=== PATIENT | female | born 1985 | race Caucasian/White ===

== ENCOUNTER → 2017-09-17 11:14 | Outpatient (CLI) | payer SELFPAY ==
[2017-09-17 14:52] LABS: Chlamydia Trachomatis by PCR Negative (Negative); Neisserai gonorrhoeae by PCR Negative (Negative); Probe Check PASS; Sample Adequacy Control PASS; Specimen Processing Control PASS
== END ==
LOC: WOBLAB 11:15 → LABSPEC 11:16
PROVIDERS: Visit Provider Obstetrics & Gynecology
DX: Z11.3 Encounter for screening for infections with a predominantly sexual mode of transmission (principal)
CPT/HCPCS: 87491; 87591

== ENCOUNTER → 2017-10-20 10:29 | Outpatient (CLI) | payer SELFPAY ==
[2017-10-20 11:32] LABS: Absolute Lymphocyte Count 1.23 X10^3/ul (0.83-4.51); Absolute Neutrophil Count 3.9 X10^3/uL (2.0-7.7); Basophil# 0.01 X10^3/uL; Basophil% 0.2 % (0-1); Color, Urine Yellow (Yellow); Eosinophil# 0.04 X10^3/uL; Eosinophils% 0.7 % (0-5); Glucose, Dipstick Normal (Normal); Hematocrit 34.3 % (37-47); Hemoglobin 11.9 g/dl (12.0-15.0); Ketone-Dipstick Negative (Negative); Leukocyte Esterase-Dipstick 25 /ul (Negative); Lymphocyte # 1.23 X10^3/ul (4.0); Lymphocyte % 22.4 % (19-41); Mean Corp Hgb Conc 34.7 g/gl (32-36); Mean Corpuscular Hgb 31.8 pg (27.0-32.0); Mean Corpuscular Volume 91.7 fL (81-99); Mean Platelet Vol. 10.7 fl (6.2-12.0); Monocyte# 0.27 X10^3/uL; Monocyte% 4.9 % (0-10); Neutrophil # 3.93 X10^3/uL (2.7-7.7); Neutrophil % 71.6 % (47-70); Nitrite-Dipstick Negative (Negative); Occult Blood-Urine 150 /ul (Negative); POSITIVE COUNT NO; POSITIVE DIFFERENTIAL NO; POSITIVE MORPHOLOGY NO; Platelet Count 187 K/mm3 (150-450); Protein-Dipstick Negative (Negative); RBC Distribution Width CV 12.8 % (11.6-14.6); RBC Distribution Width SD 41.9 fl (35.1-43.9); Red Blood Count 3.74 M/mm3 (4.2-5.4); Specific Gravity, Urine 1.015 (1.002-1.030); Urine Bilirubin Dipstick Negative (Negative); Urine Clarity Cloudy (Clear); Urine Urobilinogen Normal (Normal); White Blood Count 5.5 K/mm3 (4.4-11.0)
[2017-10-20 11:53] LABS: Thyroid Stim Hormone (TSH) 1.05 uIU/mL (0.358-3.74)
[2017-10-20 12:31] LABS: HIV - WCH Non-Reactive (Nonreactive); Rubella IgG 35.3 IU/mL
[2017-10-21 14:48] LABS: HEPATITIS B SURFACE AG Negative (Negative); Hep C Antibodies <0.1 s/co ratio (0.0-0.9)
[2017-10-22 01:20] LABS: Prenatal RPR NONREACTIVE (NONREACTIVE)
== END ==
PROVIDERS: Family Provider Nurse Practitioner; PCP Nurse Practitioner; Visit Provider Obstetrics & Gynecology
DX: Z34.81 Encounter for supervision of other normal pregnancy, first trimester (principal)
CPT/HCPCS: 81002; 84443; 85025; 86703; 86762; 86803; 87340

== ENCOUNTER → 2018-01-24 10:18 | Outpatient (CLI) | payer SELFPAY ==
[2018-01-24 11:56] LABS: Hematocrit 33.7 % (37-47); Hemoglobin 11.3 g/dl (12.0-15.0); Mean Corp Hgb Conc 33.5 g/gl (32-36); Mean Corpuscular Hgb 32.1 pg (27.0-32.0); Mean Corpuscular Volume 95.7 fL (81-99); Mean Platelet Vol. 9.9 fl (6.2-12.0); Platelet Count 192 K/mm3 (150-450); RBC Distribution Width CV 12.8 % (11.6-14.6); RBC Distribution Width SD 44.4 fl (35.1-43.9); Red Blood Count 3.52 M/mm3 (4.2-5.4); Scan Indicated on CBC? Y/N YES- FLAGS NOTED; White Blood Count 7.4 K/mm3 (4.4-11.0)
[2018-01-24 11:58] LABS: Glucose Challenge Gest 1H 50g 64 mg/dL (70-140)
== END ==
PROVIDERS: Visit Provider Obstetrics & Gynecology
DX: Z34.83 Encounter for supervision of other normal pregnancy, third trimester (principal)
CPT/HCPCS: 36415; 82950; 85027

== ENCOUNTER → 2018-03-14 11:49 | Outpatient (CLI) | payer SELFPAY ==
[2018-03-14 14:44] LABS: Group B Strep DNA By PCR Negative (Negative); Internal Control PASS; Probe Check PASS; Specimen Processing Control PASS
== END ==
PROVIDERS: Visit Provider Obstetrics & Gynecology
DX: Z36.85 Encounter for antenatal screening for Streptococcus B (principal)
CPT/HCPCS: 87081; 87653

== ENCOUNTER 2018-04-24 21:20 | Outpatient (CLI) | payer SELFPAY ==
[2018-04-24 22:08] VITALS: BMI 33.4
--- NOTE | 2018-04-26 08:44 | OB.TRI.NOTE ---
History of Present Illness Date of Service: 04/24/18 Was patient seen by the physician?: No Reason For Visit: R/O LABOR Date of Service: 04/24/18 Final GUSTAVO: 04/17/18 Final GUSTAVO Source: US <20 weeks Gestational age: 41 Weeks and 0 Days History of Present Illness: 32 yo female at 41 wk. declined induction. Here for labor check. Plans . One prior C/S for malpresentation. Allergies No Known Allergies Allergy (Verified 12/31/13 12:53) NST - FHR Rate Baby A Baseline: 110-120 with accels to 150s prolonged accels also, w baseline in 130-140s Variability:: Moderate Accelerations:: 15 x 15 Decelerations:: None NST Reactive:: Yes, Appropriate for gestational age FHR Category:: Category I Uterine Activity:: Irregular UCs and some uterine irritability 3-6 min+ Impression/Plan 41 wk prior C/S for malpresentation. Plans . Declines induction. False labor. Cervix unchanged from prior office exams. RTO for inc s/sx of labor. To office for NST and visits as planned. Induction by 42 wk if undelivered by then.
== END 2018-04-24 23:40 | disposition home or self-care (01) ==
LOC: WPOUT 22:06 → WP 22:07
PROVIDERS: Visit Provider Obstetrics & Gynecology
DX: O47.1 False labor at or after 37 completed weeks of gestation (principal); Z3A.41 41 weeks gestation of pregnancy
CPT/HCPCS: 59025; 59050; 99218; G0378

== ENCOUNTER 2018-04-26 17:14 | Inpatient (IN) | payer SELFPAY ==
[2018-04-26] MEDS: Lactated Ringers 1,000 ML 50 ML IV (15:35)
[2018-04-26 17:45] VITALS: BMI 33.2
[2018-04-26 17:58] LABS: Hemoglobin 12.2 g/dl (12.0-15.0); Mean Corp Hgb Conc 33.9 g/gl (32-36); Mean Corpuscular Hgb 31.9 pg (27.0-32.0); Mean Corpuscular Volume 94.2 fL (81-99); Mean Platelet Vol. 9.3 fl (6.2-12.0); Platelet Count 231 K/mm3 (150-450); RBC Distribution Width CV 12.7 % (11.6-14.6); RBC Distribution Width SD 43.5 fl (35.1-43.9); Red Blood Count 3.82 M/mm3 (4.2-5.4); White Blood Count 9.4 K/mm3 (4.4-11.0)
[2018-04-26 18:04] LABS: Scan Indicated on CBC? Y/N NO
[2018-04-26] MEDS: Oxytocin 30 units/NS 500 ml 30 UNITS/500 ML IV.SOLN IV (18:27)
--- NOTE | 2018-04-26 20:00 | PCM.PN.BLA ---
Progress Note LABOR PROGRESS NOTE Feeling some UCs. ? trickle of fluid, not much. Wearing pad as was walking briskly around unit AVSS Pitocin at 2 mIU/min EFM 130-140s avg variability Accels to 150-160 UCs irregular. CX: -2 more midposition AROM: mod clear, yellow fluid noted. A/P: 41 2/7 wk AROM now confirmed. clear fluid. Continue pitocin with inc per protocol to adequate labor. IUPC to be inserted prn.
[2018-04-26] MEDS: Oxytocin 30 units/NS 500 ml 30 UNITS/500 ML IV.SOLN 334 UNITS IV (23:00)
--- NOTE | 2018-04-26 23:10 | PCM.OB.VAG ---
Vaginal Delivery Maternal Presentation: Medically Indicated Induction 41 2/7 wk EGA Method of Induction: Pitocin, Amniotomy Medical Reason for Induction: Post term Amniotic Membrane Rupture Type: Artificial Amniotic Fluid Description: Clear Final GUSTAVO: 04/17/18 Final GUSTAVO Source: US <20 weeks Gestational age: 41 Weeks and 2 Days Date of Procedure: 04/26/18 Pre-Operative Diagnosis: 41 2/7 wk EGA. Post-Operative Diagnosis: Same Surgery/ Procedure Performed: Spontaneous Vaginal Delivery Type of Anesthesia: None Description of Procedure: of a hernandez viable male over intact perineum Head delivered GHISLAINE. OP and nares bulb suctioned on perineum. Mild shoulder dystocia relieved by MacRobert's maneuver and maternal expulsive effort, gentle lateral traction. Shoulder delivered then Infant to maternal abdomen to dry, stimulate. Cord clamped x two and cut to allow infant further stimulation at isolette. Vigorous cry then noted. Color improved. Facial bruising noted 2/2 rapid descent. Routine venous cord blood collected. Unable to collect arterial. PP exam; 1st deg vaginal, perineal laceration noted. hemostatic. Placenta delivered by spont expulsion. EBL 200 Pt and tolerated delivery well. To recovery, stable condition Ray Alireza counts correct x two. Presentation: Vertex Placental Delivery Description: Spontaneous Placenta Disposition: [facility] Cord Vessel Description: 3 Vessels Cord Entanglement: None Estimated Blood Loss: 200 (1 minute): 7 (5 minute): 9 - facial bruising noted, rapid descent Episiotomy Description: None Laceration: Midline, Perineal Extension/lac, Vaginal Extension/lac, 1st degree - no repair required. hemostatic Medications given after delivery: IV Pitocin Complications: None
--- NOTE | 2018-04-26 23:27 | PCM.DCVAG ---
Discharge Diet: No Restrictions Discharge Activity: May Shower, May Take a Tub Bath May resume sexual activity in: 4-6 weeks Additional Activity Instructions:: Nothing in the vagina for 4-6 weeks. You may return to work/school in 6 weeks. Additional Instructions: If you experience any of the following, contact your healthcare provider. Bleeding that soaks a pad every hour for 2 hours Fever 100.4 or higher Unrelieved or abdominal pain Problems urinating (including inability to urinate or burning while urinating). Visual changes Severe headache Flu-like symptoms Pain or redness in one of both of your breasts Pain, warmth, tenderness or swelling in your legs, especially the calf area Frequent nausea and vomiting Symptoms of depression or anxiety If you experience any of the following, call 911 or go to the nearest Emergency Room. Chest pain Problems breathing Seizure activity Partial or complete paralysis of a body part, slurred speech, weakness or drooping of the face, or a sudden inability to walk or hold your balance Allergies/Adverse Reactions: Allergies No Known Allergies Allergy (Verified 12/31/13 12:53) Medications to take at Discharge Vits [Prenatabs FA] 1 tablet PO DAILY 04/24/18 Biotin 1 mg PO DAILY 04/26/18 Cholecalciferol (Vitamin D3) [Vitamin D3] 2,000 unit PO DAILY 04/26/18 Fish Oil/Borage/Flax/Om3,6,9#1 [[place] 3-6-9 1,200 mg Softgel] 1,200 mg PO DAILY 04/26/18 Please Follow Up With: Dayami Rodas MD - [phone] When: Call to make an appointment with your doctor in 6 weeks. Test Results: Test results from this visit will be discussed in further detail at your follow-up appointment, if applicable. Proposed Discharge Date: 04/28/18
--- NOTE | 2018-04-26 23:28 | DCINST_ITS ---
Discharge Diet: No Restrictions Discharge Activity: May Shower, May Take a Tub Bath May resume sexual activity in: 4-6 weeks Additional Activity Instructions:: Nothing in the vagina for 4-6 weeks. You may return to work/school in 6 weeks. Additional Instructions: If you experience any of the following, contact your healthcare provider. * Bleeding that soaks a pad every hour for 2 hours * Fever 100.4 or higher * Unrelieved or abdominal pain * Problems urinating (including inability to urinate or burning while urinating). * Visual changes * Severe headache * Flu-like symptoms * Pain or redness in one of both of your breasts * Pain, warmth, tenderness or swelling in your legs, especially the calf area * Frequent nausea and vomiting * Symptoms of depression or anxiety If you experience any of the following, call 911 or go to the nearest Emergency Room. * Chest pain * Problems breathing * Seizure activity * Partial or complete paralysis of a body part, slurred speech, weakness or drooping of the face, or a sudden inability to walk or hold your balance Allergies/Adverse Reactions: Allergies No Known Allergies Allergy (Verified 12/31/13 12:53) Medications to take at Discharge Vits [Prenatabs FA] 1 tablet PO DAILY 04/24/18 Biotin 1 mg PO DAILY 04/26/18 Cholecalciferol (Vitamin D3) [Vitamin D3] 2,000 unit PO DAILY 04/26/18 Fish Oil/Borage/Flax/Om3,6,9#1 [[place] 3-6-9 1,200 mg Softgel] 1,200 mg PO DAILY 04/26/18 Please Follow Up With: Dayami Rodas MD - [phone] When: Call to make an appointment with your doctor in 6 weeks. Test Results: Test results from this visit will be discussed in further detail at your follow- up appointment, if applicable. Proposed Discharge Date: 04/28/18
[2018-04-26] MEDS: Oxytocin 30 units/NS 500 ml 30 UNITS/500 ML IV.SOLN 167 UNITS IV (23:30)
[2018-04-27 04:00] VITALS: BP 106/55; PULSE 70; RESP 14; TEMP 36.4
[2018-04-27 07:38] VITALS: BP 116/62; PULSE 76; RESP 18; TEMP 36.6
[2018-04-27] MEDS: Acetaminophen 500 MG Tablet 1000 MG PO (07:48)
--- NOTE | 2018-04-27 08:01 | PCM.PN.OB ---
Subjective: PPD#1 late last pm Doing well Minimal pain and took Tylenol for pain 2/2 cramping with nursing. Nursing well. no concerns voiced. Baby with some facial bruising due to rapid descent. - Physical Exam General: Alert, Oriented x3, Cooperative, No apparent distress HEENT: Atraumatic Neck: Supple Abdomen: Soft - Fundus firm NT at umbilicus - 1-2 cm. Neurological: Cranial nerves II-XII grossly intact Psych/Mental Status: Normal Affect Vital Signs Temp Pulse Resp BP 97.9 F 76 18 116/62 04/27/18 07:38 04/27/18 07:38 04/27/18 07:38 04/27/18 07:38 Oxygen Delivery Method Room Air Weight: 93.3 kg Body Mass Index (BMI) 33.2 Intake and Output for Last 24 Hours 04/25/18 04/26/18 04/27/18 23:59 23:59 23:59 Output Total 150 / 150 650 / 650 Balance -150 / -150 -650 / -650 Laboratory Tests Past 24 Hrs 04/26/18 04/26/18 17:25 17:25 WBC 9.4 RBC 3.82 L Hgb 12.2 Hct 36.0 L MCV 94.2 MCH 31.9 MCHC 33.9 RDW 12.7 RDW Differential 43.5 Plt Count 231 MPV 9.3 Blood Type A POSITIVE Antibody Screen NEGATIVE Medical Necessity - Tobacco Use Smoking Status: Smoker, status unknown Assessment/Plan PPD#1 Induction at 41 2/7 wk EGA Stable pp Continue care. Baby with facial bruising. Advised continue hospital stay to monitor bilirubin levels.
[2018-04-27 13:17] VITALS: BP 125/78; PULSE 69; RESP 18; TEMP 36.4
--- NOTE | 2018-04-27 13:43 | NURSING ---
This psychiatric nursing aide reviewed the charting completed by Lise Bejarano, student nurse.
[2018-04-27 16:20] VITALS: BP 113/66; PULSE 72; RESP 18; TEMP 36.3
[2018-04-27 20:28] VITALS: BP 137/73; PULSE 77; RESP 16; TEMP 36.4
[2018-04-28 01:54] VITALS: BP 116/72; PULSE 69; RESP 15; TEMP 37.2
[2018-04-28 08:58] VITALS: BP 129/77; PULSE 93; RESP 16; TEMP 36.7
--- OUTSIDE RECORDS SUMMARY | 2018-06-22 09:32 | XMS RPT_ITS ---
:1985 Author Organization OHIP Care Team Providers Name Role Phone Dayami Rodas Attending Unavailable Dayami Rodas Attending Unavailable Taylor Deleon PALEONTOLOGICAL HELPER-C Primary Care Unavailable Dayami Rodas Attending Unavailable Dayami Rodas Admitting Unavailable Dayami Rodas Attending Unavailable Dayami Rodas Referring Unavailable Taylor Deleon PALEONTOLOGICAL HELPER-C Primary Care Unavailable Dayami Rodas Attending Unavailable Dayami Rodas Attending Unavailable PROBLEMS PROBLEMS DATE TYPE CONDITION / CODE ATTENDING STATUS SOURCE 03/14/2018 Unknown Z36.85 - Encounter [place] Dayami Active [facility] for Community screening for Hospital Streptococcus B / Repository Z36.85(ICD-10) 01/26/2018 Unknown Z34.82 - Encounter [place] Dayami Active [place] for supervision of Community other normal Hospital , second Repository trimester / Z34.82(ICD-10) 10/20/2017 Unknown Z34.81 - Encounter [place] Dayami Active [place] for supervision of Community other normal Hospital , first Repository trimester / Z34.81(ICD-10) 09/17/2017 Unknown Z11.3 - Encounter Clark Dayami Active [place] for screening for Community infections with a Hospital predominantly Repository sexual mode of transmission / Z11.3(ICD-10) PROCEDURES PROCEDURES No Procedure Records FoundRESULTS RESULTS DISCHARGE INSTRUCTION Observed: 04/26/2018 Status: F Source: [place] 11:28 PM [facility] REPOSITORY [facility] Medical Records Department [address] [place] [address] Instructions for Home/Discharge Instructions 04/26/18 2327 MR#: [id number] Acct: [id number] Name: AYAKA ARENAS Alex Rep #: [id number] : 1985 32 From: Dayami Rodas MD PCP: Status: ADM IN Discharge Diet: No Restrictions Discharge Activity: May Shower, May Take a Tub Bath May resume sexual activity in: 4-6 weeks Additional Activity Instructions:: Nothing in the vagina for 4-6 weeks. You may return to work/school in 6 weeks. Additional Instructions: If you experience any of the following, contact your healthcare provider. * Bleeding that soaks a pad every hour for 2 hours * Fever 100.4 or higher * Unrelieved or abdominal pain * Problems urinating (including inability to urinate or burning while urinating). * Visual changes * Severe headache * Flu-like symptoms * Pain or redness in one of both of your breasts * Pain, warmth, tenderness or swelling in your legs, especially the calf area * Frequent nausea and vomiting * Symptoms of depression or anxiety If you experience any of the following, call 911 or go to the nearest Emergency Room. * Chest pain * Problems breathing * Seizure activity * Partial or complete paralysis of a body part, slurred speech, weakness or drooping of the face, or a sudden inability to walk or hold your balance Allergies/Adverse Reactions: Allergies No Known Allergies Allergy (Verified 12/31/13 12:53) Medications to take at Discharge Vits [Prenatabs FA] 1 tablet PO DAILY 04/24/18 Biotin 1 mg PO DAILY 04/26/18 Cholecalciferol (Vitamin D3) [Vitamin D3] 2,000 unit PO DAILY 04/26/18 Fish Oil/Borage/Flax/Om3,6,9#1 [Monaca 3-6-9 1,200 mg Softgel] 1,200 mg PO DAILY 04/26/18 Please Follow Up With: Dayami Rodas MD - [phone] When: Call to make an appointment with your doctor in 6 weeks. Test Results: Test results from this visit will be discussed in further detail at your follow-up appointment, if applicable. Proposed Discharge Date: 04/28/18 04/26/188 <Electronically signed by Dayami Rodas MD> Date Dayami Rodas MD CC: OPERATIVE REPORT Observed: 04/26/2018 Status: F Source: [place] 11:18 PM [facility] Medical Records Department [address] [place] [address] Operative Report 04/26/18 2310 MR#: [id number] Acct: [id number] Name: AYAKA ARENAS Rep #: [id number] : 1985 32 From: Dayami Rodas MD PCP: Status: ADM IN Location: [place] [id number] Vaginal Delivery Maternal Presentation: Medically Indicated Induction 41 2/7 wk EGA Method of Induction: Pitocin, Amniotomy Medical Reason for Induction: Post term Amniotic Membrane Rupture Type: Artificial Amniotic Fluid Description: Clear Final GUSTAVO: 04/17/18 Final GUSTAVO Source: US <20 weeks Gestational age: 41 Weeks and 2 Days Date of Procedure: 04/26/18 Pre-Operative Diagnosis: 41 2/7 wk EGA. Post-Operative Diagnosis: Same Surgery/ Procedure Performed: Spontaneous Vaginal Delivery Type of Anesthesia: None Description of Procedure: of a hernandez viable male over intact perineum Head delivered GHISLAINE. OP and nares bulb suctioned on perineum. Mild shoulder dystocia relieved by MacRobert's maneuver and maternal expulsive effort, gentle lateral traction. Shoulder delivered then to maternal abdomen to dry, stimulate. Cord clamped x two and cut to allow infant further stimulation at isolette. Vigorous cry then noted. Color improved. Facial bruising noted 2/2 rapid descent. Routine venous cord blood collected. Unable to collect arterial. PP exam; 1st deg vaginal, perineal laceration noted. hemostatic. Placenta delivered by spont expulsion. EBL 200 Pt and infant tolerated delivery well. To recovery, stable condition Ray Alireza counts correct x two. Presentation: Vertex Placental Delivery Description: Spontaneous Placenta Disposition: [facility] Cord Vessel Description: 3 Vessels Cord Entanglement: None Estimated Blood Loss: 200 (1 minute): 7 (5 minute): 9 - facial bruising noted, rapid descent Episiotomy Description: None Laceration: Midline, Perineal Extension/lac, Vaginal Extension/lac, 1st degree - no repair required. hemostatic Medications given after delivery: IV Pitocin Complications: None 04/26/18 3917 <Electronically signed by Dayami Rodas MD> Date Dayami Rodas MD CC: Dayami Rodas MD Signed CBC-COMPLETE BLOOD CNT Collected: 04/26/2018 Status: F Source: [place] NO DIFF 5:25 PM [facility] [place] TYPE CODE TESTS RESULT OUT OF RANGE REFERENCE UNITS LAB L100.1000 4.4-11.0 K/mm3 Normal WBC 9.4 LAB L100.1200 4.2-5.4 M/mm3 Low RBC 3.82 LAB L100.1300 12.0-15.0 g/dl Normal HGB 12.2 LAB L100.1400 37-47 % Low HCT 36.0 LAB L100.1500 81-99 fL Normal MCV 94.2 LAB L100.1600 27.0-32.0 pg Normal MCH 31.9 LAB L100.1700 32-36 g/gl Normal MCHC 33.9 LAB L100.1810 11.6-14.6 % Normal RDW CV 12.7 LAB L100.1820 35.1-43.9 fl Normal RDW SD 43.5 LAB L100.1900 150-450 K/mm3 Normal PLT 231 LAB L100.2000 6.2-12.0 fl Normal MPV 9.3 Performed By: #### L100.0500 #### [facility] [address] [place], [address] TYPE AND SCREEN Collected: 04/26/2018 Status: F Source: [place] 5:25 PM [facility] [place] Order Comment: Reason for Type AND Screen/Red Cells: ROUTINE TYPE CODE TESTS RESULT OUT OF RANGE REFERENCE UNITS LAB B10.0800 A Normal BLOOD TYPE GEL POSITIVE LAB B100.4000 Normal Antibody NEGATIVE Screen Performed By: #### B101.7450 #### [facility] [place], [address] GROUP B STREP DNA Collected: 03/14/2018 Status: F Source: [place] BY PCR 11:00 AM [facility] [place] Order Comment: Source: Vaginal-Rectal TYPE CODE TESTS RESULT OUT OF RANGE REFERENCE UNITS LAB L8200.0100 Negative Normal GBS TEST Negative RESULT Performed By: #### L8200.0000 #### [facility] [place], [address] Observed: 03/14/2018 Status: F Source: [place] CULTURE, GROUP B 12:00 AM [facility]POSITORY ALEXUS Culture Group B Beta Streptococcus is not isolated. Performed By: #### M100.1800 #### [facility] [address] [facility] [place], [address] CBC-COMPLETE BLOOD CNT Collected: 01/24/2018 Status: F Source: [place] NO DIFF 10:16 AM [facility] [place] TYPE CODE TESTS RESULT OUT OF RANGE REFERENCE UNITS LAB L100.1000 4.4-11.0 K/mm3 Normal WBC 7.4 LAB L100.1200 4.2-5.4 M/mm3 Low RBC 3.52 LAB L100.1300 12.0-15.0 g/dl Low HGB 11.3 LAB L100.1400 37-47 % Low HCT 33.7 LAB L100.1500 81-99 fL Normal MCV 95.7 LAB L100.1600 27.0-32.0 pg High MCH 32.1 LAB L100.1700 32-36 g/gl Normal MCHC 33.5 LAB L100.1810 11.6-14.6 % Normal RDW CV 12.8 LAB L100.1820 35.1-43.9 fl High RDW SD 44.4 LAB L100.1900 150-450 K/mm3 Normal PLT 192 LAB L100.2000 6.2-12.0 fl Normal MPV 9.9 Performed By: #### L100.0500 #### [facility] [address] [place], [address] GLUCOSE CHALLENGE GEST Collected: 01/24/2018 Status: F Source: [place] 1H 50G 10:16 AM [facility] TYPE CODE TESTS RESULT OUT OF RANGE REFERENCE UNITS LAB L501.0250 70-140 mg/dL Low GLU GEST 64 50g 1H Performed By: #### L501.0250 #### [facility] [address] [place], [address] CBC W/DIFF, AUTOMATED Collected: 10/20/2017 Status: F Source: [place] 10:33 AM [facility] [place] TYPE CODE TESTS RESULT OUT OF RANGE REFERENCE UNITS LAB L100.1000 4.4-11.0 K/mm3 Normal WBC 5.5 LAB L100.1200 4.2-5.4 M/mm3 Low RBC 3.74 LAB L100.1300 12.0-15.0 g/dl Low HGB 11.9 LAB L100.1400 37-47 % Low HCT 34.3 LAB L100.1500 81-99 fL Normal MCV 91.7 LAB L100.1600 27.0-32.0 pg Normal MCH 31.8 LAB L100.1700 32-36 g/gl Normal MCHC 34.7 LAB L100.1810 11.6-14.6 % Normal RDW CV 12.8 LAB L100.1820 35.1-43.9 fl Normal RDW SD 41.9 LAB L100.1900 150-450 K/mm3 Normal PLT 187 LAB L100.2000 6.2-12.0 fl Normal MPV 10.7 LAB L100.2100 47-70 % High NEUT% 71.6 LAB L100.2200 19-41 % Normal LY% 22.4 LAB L100.2300 0-10 % Normal MONO% 4.9 LAB L100.2400 0-5 % Normal EO% 0.7 LAB L100.2500 0-1 % Normal BASO% 0.2 LAB L100.2550 0.0-0.9 % Normal IM GRAN % 0.200 Result Comment: IG% - Immature Granulocytes (promyelocytes, myelocytes and metamyelocytes) > 1% indicates that a LEFT SHIFT is Present. LAB L100.2620 2.0-7.7 X10 3/uL Normal Absolute Neut 3.9 LAB L100.2720 0.83-4.51 X10 3/ul Normal Absolute Lymph 1.23 Performed By: #### L100.0100 #### [facility] [address] [place], [place], [address] URINALYSIS, ROUTINE Collected: 10/20/2017 Status: F Source: [place] (DIPSTICK) 10:33 AM [facility] Order Comment: How was Urine Obtained? CLEAN CATCH TYPE CODE TESTS RESULT OUT OF RANGE REFERENCE UNITS LAB L400.3000 Yellow COLOR Normal Yellow LAB L400.3050 Clear Normal CLARITY Cloudy LAB L400.3200 Normal mg/dl Normal GLUCOSE, UR Normal LAB L400.3300 Negative mg/dL Normal BILIRUBIN URINE Negative LAB L400.3400 Negative mg/dl Normal KETONE UR Negative LAB L400.3465 1.002-1.030 Normal SP.GR. DIPSTX 1.015 LAB L400.3550 5.0 - 8.0 pH UR Normal 8.0 LAB L400.3600 Negative mg/dl PROT Normal DIPSTX Negative LAB L400.3700 Normal mg/dl Normal UROBILI Normal LAB L400.3750 Negative Normal NITRITE UR Negative LAB L400.3780 Negative /ul High OCCULT BLOOD-UR 150 LAB L400.3800 Negative /ul High LEUK 25 ESTERASE Performed By: #### L400.2010 #### [facility] [address] [place], [address] THYROID STIM HORMONE Collected: 10/20/2017 Status: F Source: [place] (TSH) 10:33 AM [facility] TYPE CODE TESTS RESULT OUT OF RANGE REFERENCE UNITS LAB L501.9520 0.358-3.74 uIU/mL Normal TSH 1.05 Performed By: #### L501.9520 #### [facility] [place], [address] RUBELLA IGG Collected: 10/20/2017 Status: F Source: [place] 10:33 AM [facility] [place] TYPE CODE TESTS RESULT OUT OF RANGE REFERENCE UNITS LAB L509.4000 IU/mL Normal Rubella IgG 35.3 Result Comment: Antibody results Interpretation of Immune Status < 5 IU/ml Presumed Non-immune 5 - < 10 IU/ml Equivocal > or = 10 IU/ml Presumed Immune Performed By: #### L509.4000, L3890.6005 #### [facility] [facility] [address] [place], [place], [id number] HIV - [facility] Collected: 10/20/2017 Status: F Source: [place] 10:33 AM [facility] [place] TYPE CODE TESTS RESULT OUT OF RANGE REFERENCE UNITS LAB L3890.6005 Nonreactive Normal HIV - [facility] Non-Reactive Performed By: #### L509.4000, L3890.6005 #### [facility] [facility] [address] [place], [address] T AND S-NO Collected: 10/20/2017 Status: F Source: [place] CHARGE W/PNP 10:33 AM [facility] Order Comment: Reason for Type AND Screen/Red Cells: Surgery? N TYPE CODE TESTS RESULT OUT OF RANGE REFERENCE UNITS LAB B10.0800 A Normal BLOOD POSITIVE TYPE GEL LAB B100.4050 Normal Ab SCREEN NEGATIVE GEL Performed By: #### B100.7550 #### [facility] [place], [address] HEPATITIS B SURFACE Collected: 10/20/2017 Status: F Source: [place] AG 10:33 AM [facility] TYPE CODE TESTS RESULT OUT OF RANGE REFERENCE UNITS LAB L3100.0400 Negative Normal HB Negative SURF AG Result Comment: Performed at: - [facility] [id number] Electrical And Instrument Engineer: Vincent Mckeon PhD, Phone: [phone] Performed By: #### L3100.0390, L3100.0625 #### [facility] (refer to report for specific site) refer to report for address and phone number HEPATITIS C ANTIBODIES Collected: 10/20/2017 Status: F Source: [place] 10:33 AM [facility] TYPE CODE TESTS RESULT OUT OF RANGE REFERENCE UNITS LAB L3100.0650 0.0-0.9 s/co ratio Normal HEP C AB <0.1 Result Comment: Negative: < 0.8 Indeterminate: 0.8 - 0.9 Positive: > 0.9 The CDC recommends that a positive HCV antibody result be followed up with a HCV Nucleic Acid Amplification test (888849). Performed By: #### L3100.0390, L3100.0625 #### [facility] (refer to report for specific site) refer to report for address and phone number RPR Collected: 10/20/2017 Status: F Source: [place] 10:33 AM [facility] TYPE CODE TESTS RESULT OUT OF REFERENCE UNITS RANGE LAB L700.5100 NONREACTIVE Normal RPR NONREACTIVE Performed By: #### L700.5100 #### [facility] [address] [place], [place], [address] CT/NG [facility] BY PCR Collected: 09/17/2017 Status: F Source: [place] 9:00 AM [facility] TYPE CODE TESTS RESULT OUT OF RANGE REFERENCE UNITS LAB L8200.2100 Negative Normal Chlam Negative Trac PCR LAB L8200.2200 Negative Normal NG by Negative PCR Performed By: #### L8200.2000 #### [facility] [address] [place], [place], [address] ALLERGIES ALLERGIES DATE TYPE / CODE NAME / CODE REACTION SEVERITY SOURCE 12/31/2013 Drug No Known Unknown [place] [facility] Allergy/4160 Allergies/F00 Hospital 58630(SNOMED [id number](RXNOR Repository CT) M) ENCOUNTERS ENCOUNTERS ADMIT/DISCHARGE ACCOUNT ADMITTING ENCOUNTER LOCATION SOURCE NUMBER CLASS 04/26/2018/ [id number] Clark, Inpatient [facility] Gareth 8 0 Dayami Encounter [facility] ing:WPRoom: Repository GY657Hyg: 1 04/24/2018/ [id number] Ambulatory [place] 8 5 [facility] ing:WPOUTRoom Repository : [id number] 03/14/2018 [id number] Ambulatory [place] Gareth 8 [facility] ing:LABSPEC Repository 01/24/2018 [id number] Ambulatory Gareth Gareth 3 [facility] ing:WOBLAB Repository 10/20/2017 [id number] Ambulatory [place] 9 [facility] ing:WOBLAB Repository 09/17/2017 [id number] Ambulatory [place]areth [place] 0 [facility] ing:LABSPEC Repository PAYERS PAYERS ENCOUNTER GUARANTOR PAYER SUBSCRIBER SOURCE 04/26/2018 BOBBY Primary Insurance:[facility] AYAKA M [place] [id number] [facility]ACKAGE PLANKirk[facility] Centery STEINERDOB: [facility] [place] [id number] [id number] Repository [address]Gui: (330) Date:2018-02-18 () 04/26/2018 Secondary NOT GIVENUNK Gareth Insurance:SELF PAY [facility] Number: Effective Repository Date:2018-02-18 04/24/2018 BOBBY Primary NOT GIVENUNK [place] [id number] Insurance:SELF PAY [place] Number: Effective Repository [id number]: (330) Date:2018-04-24 () 03/14/2018 Bobby Primary NOT GIVENUNK Gareth [id number] Insurance:SELF PAY [place], [place] Number: Effective Repository [phone]: (330) Date:2018-03-14 () 01/24/2018 Bobby Primary NOT GIVENUNK [place] [id number] Insurance:SELF PAY [place] Number: Effective Repository [id number]: (330) Date:2018-01-24 () 10/20/2017 Bobby Primary NOT GIVENUNK [place] [id number] Insurance:SELF PAY [place] Number: Effective Repository [phone]: (330) Date:2017-10-20 () 09/17/2017 Bobby Primary NOT GIVENUNK Gareth [id number] Insurance:SELF PAY [facility] Number: Effective Repository [phone]: ([phone]) Date:2017-09-17 46 ()
== END 2018-04-28 10:30 | disposition home or self-care (01) | DRG 807 ==
PROVIDERS: Admitting Provider Obstetrics & Gynecology; Referring Provider Obstetrics & Gynecology; Visit Provider Obstetrics & Gynecology
DX: O48.0 Post-term pregnancy (principal); Z37.0 Single live birth; Z3A.41 41 weeks gestation of pregnancy; O66.0 Obstructed labor due to shoulder dystocia; O70.0 First degree perineal laceration during delivery
CPT/HCPCS: 59025; 59050; 85027; 86850; 86900; 99218; J7120; G0378

== ENCOUNTER → 2018-06-13 15:02 | Outpatient (CLI) | payer SELFPAY ==
[2018-06-16 09:51] LABS: HPV Reflexed? NOT INDICATED
== END ==
PROVIDERS: Visit Provider Obstetrics & Gynecology
DX: Z12.4 Encounter for screening for malignant neoplasm of cervix (principal)
CPT/HCPCS: 88175; G0145

== ENCOUNTER → 2020-02-19 16:41 | Outpatient (CLI) | payer SELFPAY ==
[2020-02-19 18:34] LABS: hCG Titer Quant., Serum 34 mIU/mL (1-3)
== END ==
PROVIDERS: Visit Provider Obstetrics & Gynecology
DX: O03.9 Complete or unspecified spontaneous abortion without complication (principal)
CPT/HCPCS: 36415; 84702

== ENCOUNTER → 2020-05-23 12:54 | Outpatient (CLI) | payer SELFPAY ==
[2020-05-23 13:40] LABS: hCG Titer Quant., Serum < 1 mIU/mL (1-3)
== END ==
PROVIDERS: Referring Provider Obstetrics & Gynecology; Visit Provider Obstetrics & Gynecology
DX: O03.9 Complete or unspecified spontaneous abortion without complication (principal); Z3A.00 Weeks of gestation of pregnancy not specified
CPT/HCPCS: 36415; 84702

== ENCOUNTER → 2020-08-15 14:33 | Outpatient (CLI) | payer SELFPAY ==
[2020-08-15 16:09] LABS: hCG Titer Quant., Serum 357 mIU/mL (1-3)
== END ==
PROVIDERS: Visit Provider Obstetrics & Gynecology
DX: O03.9 Complete or unspecified spontaneous abortion without complication (principal)
CPT/HCPCS: 36415; 84702

== ENCOUNTER → 2021-03-03 17:02 | Outpatient (CLI) | payer SELFPAY ==
[2021-03-03 17:37] LABS: Absolute Lymphocyte Count 1.89 X10^3/uL (0.83-4.51); Basophil# 0.03 X10^3/uL; Basophil% 0.4 % (0-1); Eosinophil# 0.04 X10^3/uL; Eosinophils% 0.5 % (0-5); Hematocrit 37.4 % (37-47); Hemoglobin 12.6 g/dL (12.0-15.0); Lymphocyte # 1.89 X10^3/ul (0.83-4.51); Lymphocyte % 25.9 % (19-41); Mean Corp Hgb Conc 33.7 g/dL (32-36); Mean Corpuscular Hgb 30.8 pg (27.0-32.0); Mean Corpuscular Volume 91.4 fL (81-99); Mean Platelet Vol. 9.8 fl (6.2-12.0); Monocyte# 0.35 X10^3/uL; Monocyte% 4.8 % (0-10); NRBC Flagged by Analyzer 0 % (0-5); Neutrophil # 4.96 X10^3/uL (2.7-7.7); Neutrophil % 68.1 % (47-70); Platelet Count 247 K/mm3 (150-450); RBC Distribution Width CV 12.6 % (11.6-14.6); RBC Distribution Width SD 42.2 fl (35.1-43.9); Red Blood Count 4.09 M/mm3 (4.2-5.4); White Blood Count 7.3 K/mm3 (4.4-11.0)
[2021-03-04 08:28] LABS: HIV - WCH Non-Reactive (Nonreactive); Hepatitis B Surface Antigen Non-Reactive (Nonreactive); Hepatitis C Antibody Non-Reactive (Nonreactive); Rubella IgG Reactive (Nonreactive); Syphilis Antibodies Non-reactive
[2021-03-06 00:07] LABS: Chlamydia By Nucleic Acid AMP Negative (Negative)
[2021-03-06 14:33] LABS: Gonococcus By Nucleic Acid AMP Negative (Negative)
== END ==
PROVIDERS: Visit Provider Obstetrics & Gynecology
DX: Z34.81 Encounter for supervision of other normal pregnancy, first trimester (principal); Z11.3 Encounter for screening for infections with a predominantly sexual mode of transmission
CPT/HCPCS: 36415; 85025; 86703; 86762; 86780; 86803; 87086; 87088; 87340; 87491; 87591